=== PATIENT | male | born 2000 | race Caucasian/White ===

== ENCOUNTER 2025-07-07 09:17 | Emergency (ER) | payer OTHER ==
[2025-07-07 09:29] VITALS: BP 160/85; TEMP 98; O2SAT 100
[2025-07-07] MEDS ORDERED: NEOSPORIN TOP OINT 15 GM TOP ONE (10:15)
== END 2025-07-07 10:34 | disposition home or self-care (01) ==
LOC: M ED 09:17 → EDBD 09:17 → M ED 10:34
DX: S61.215A Laceration without foreign body of left ring finger without damage to nail, initial encounter (principal); W26.9XXA Contact with unspecified sharp object(s), initial encounter; Y92.009 Unspecified place in unspecified non-institutional (private) residence as the place of occurrence of the external cause; Y93.9 Activity, unspecified; Y99.9 Unspecified external cause status; Z88.1 Allergy status to other antibiotic agents